=== PATIENT | female | born 1955 | race African-American/Black ===

== ENCOUNTER 2017-11-26 13:35 | Emergency (ER) | payer OTHER ==
[~2017-11-26] VITALS: Ht 167.6 cm; Wt 98.0 kg
--- NOTE | 2017-11-26 14:11 | Emergency Room Report ---
History of Present Illness General Chief Complaint: Multiple Trauma/Fall Source: Patient Present Illness HPI Patient is a 62-year-old female presented after reported fall. The patient reports falling yesterday approximately 4 PM. She presented increased pain to the left knee as well as to the left side of her head. The patient denies any neck discomfort. She reports having intermittent throbbing sensation to her head. She reports having increased pain with movement to her left knee. Patient reports having increased pain and swelling to the area.The patient denied loss of consciousness. She reports having ambulated with a great difficulty after the fall.The she had been icing the area without any improvement. Allergies: Coded Allergies: No Known Allergies (Unverified , 11/26/17) Patient History Past Medical History: unable to obtain Reviewed Nursing Documentation: PMH: Agreed; PSxH: Agreed Nursing Documentation-PMH Past Medical History: No Stated History Review of Systems All Other Systems: negative except mentioned in HPI Physical Exam Vital Signs Date Time Temp Pulse Resp B/P (MAP) Pulse Ox O2 Delivery O2 Flow Rate FiO2 11/26/17 13:54 98.8 65 14 141/91 94 Room Air 98.8 Sp02 EP Interpretation: reviewed, normal General Appearance: normal inspection, alert, no apparent distress, GCS 15 Head: normocephalic, atraumatic Eyes: normal eye exam, PERRL, EOMI, lids + conjunctiva normal, no hyphema, no racoon eyes ENT: normal ENT inspection, TMs + canals normal, oropharynx normal, no baron signs Neck: trach midline, no bony tend, full range of motion without pain Respiratory: effort normal, no retractions, clear to auscultation, chest symmetrical, palpation of chest normal, speaking in full sentences Cardiovascular: regular rate, rhythm, no JVD Cardiovascular #2: 2+ radial (R), 2+ radial (L), 2+ dorsalis pedis (R), 2+ dorsalis pedis (L) Gastrointestinal: normal inspection, non-tender, non-distended, no rebound/ guarding, normal bowel sounds Genitourinary: normal inspection Musculoskeletal: non-tender, other - swelling and limited rom to left knee, tenderness medial joint line Skin: no rash, no lacerations, normal palpation Lymphatic: normal inspection Neurologic: oriented x3, sensory intact, motor strength/tone normal, normal speech Psychiatric: normal inspection, memory normal, mood normal, no suicidal/ homicidal ideation Medical Decision Making Diagnostic Impression: Primary Impression: Fall Additional Impressions: Left knee sprain Contusion ER Course Patient is a for left knee pain after a fall. The differential diagnosis included was not limited to fracture, dislocation, sprain, head injury among others.Because of complexity of patient's case imaging studies were ordered.CT the head read by radiology showed no evidence of acute intracranial hemorrhage or fracture. The x-ray of the left knee the 4 views read by radiology showed no evidence of acute fracture or dislocation no joint effusion was noted. There is narrowing of the joint space. Subchondral cysts involving the patella. The patient was placed in a knee immobilizer. She was given crutches. She is advised follow-up with her primary care physician for reexamination. Patient is advised to remove the knee mobilizer and to range her knee daily.The patient is advised to follow up with primary care doctor in 3-4 days. Patient is advised to return if any worsening condition or if any changes in status that are concerning. This report is dictated with [employer] director [employer] software which may occasionally lead to discrepancies related to use of this software. Last Vital Signs Date Time Temp Pulse Resp B/P (MAP) Pulse Ox O2 Delivery O2 Flow Rate FiO2 11/26/17 13:54 98.8 65 14 141/91 94 Room Air 98.8 Status: improved Disposition: HOME, SELF-CARE Condition: Stable Scripts Acetaminophen* (ACETAMINOPHEN EXTRA STRENGTH*) 500 Mg Tablet 500 MG ORAL Q8H PRN for Fever/Headache/Mild Pain, #30 TAB Prov: Ang Loaiza MD 11/26/17 Ibuprofen* (MOTRIN*) 600 Mg Tablet 600 MG ORAL Q8H PRN for For Pain, #30 TAB 0 Refills Prov: Ang Loaiza MD 11/26/17 Ang Loaiza MD Nov 26, 2017 14:11
[2017-11-26 14:14] VITALS: BP 141/91
[2017-11-26] MEDS ORDERED: Ketorolac 30mg Inj IM ONE (14:15)
[2017-11-26] MEDS ORDERED: Acetaminophen 500mg (ES) tab ORAL ONE (14:15)
--- NOTE | 2017-11-26 14:32 | Diagnostic Imaging Report ---
Indication: Headache Technique: Contiguous 5 mm thick transaxial imaging of the head obtained in a Siemens Sensation [address] scanner. Soft tissue and bone windows generated. Automatic Exposure Control was utilized. Total Dose length Product (DLP): 1464.[address] Dose Index Volume (CTDIvol): 70.38 mGy Comparison: none Findings: The size and configuration of the cortical sulci, basal cisterns, and ventricles are within normal limits for age. There is no mass effect, midline shift, or edema identified. There is no evidence of acute hemorrhage or abnormal intra-axial or extra-axial fluid collections. The bones and soft tissues are unremarkable. Impression: No mass effect, edema or acute bleed. The CT scanner at [facility] is accredited by the [employer] and the scans are performed using dose optimization techniques as appropriate to a performed exam including Automatic Exposure control.
--- NOTE | 2017-11-26 14:52 | Diagnostic Imaging Report ---
Indication: Knee Pain 3 views of the left knee were obtained. Findings: No acute fracture, malalignment, or joint effusion are identified. There is narrowing of the joint space. There are subchondral cysts involving the patella. Tibial spine spur formation noted. IMPRESSION: No acute injury identified. Mild arthrosis
[2017-11-26] MEDS ORDERED: ACETAMINOPHEN500 M3 ORAL (15:09)
[2017-11-26] MEDS ORDERED: IBUPROFEN600 MG ORAL (15:09)
[2017-11-26 15:14] VITALS: BP 141/91
== END 2017-11-26 15:20 | disposition home or self-care (01) ==
LOC: EMR 14:28
DX: S83.92XA Sprain of unspecified site of left knee, initial encounter (principal); W19.XXXA Unspecified fall, initial encounter; Y92.9 Unspecified place or not applicable
CPT/HCPCS: 70450; 73564; 96372; 99284; J1885